=== PATIENT | female | born 1975 | race African-American/Black ===

== ENCOUNTER 2021-01-23 16:27 | Emergency (ER) | payer OTHER ==
[2021-01-23 16:53] VITALS: BP 126/84; PULSE 87; TEMP 98.2; BMI 36.8
[2021-01-23] MEDS ORDERED: MAG HYDROX/AL HYDROX/SIMETH 30 ML UNIT-DOSE CUP PO ONE (17:30)
[2021-01-23] MEDS ORDERED: LIDOCAINE VISCOUS 2% ORAL/TOP 20 ML UNIT-DOSE CUP MM ONE (17:30)
[2021-01-23] MEDS ORDERED: ALBUTEROL SO4 2.5/IPRATROPIUM 0.5 INH SOL 3 ML VIAL.NEB. NEB ONE ×2 (17:30→18:01)
[2021-01-23] MEDS ORDERED: LIDOCAINE VISCOUS 2% ORAL/TOP 20 ML UNIT-DOSE CUP ONE (18:01)
[2021-01-23] MEDS ORDERED: MAG HYDROX/AL HYDROX/SIMETH 30 ML UNIT-DOSE CUP ONE (18:01)
[2021-01-23 18:53] LABS: BASO % 1.1 % (0-2.0); EOS % 2.3 % (0-4.5); HEMATOCRIT 32.5 % (32.4-45.2); HEMOGLOBIN 10.7 GM/dL (10.7-15.3); LYMPH % 51.6 % (8-40); MCH 28.2 pg (25.7-33.7); MEAN CELL VOLUME 85.5 fl (80-96); MEAN PLT VOLUME 7.6 fl (7.5-11.1); MONO % 6.9 % (3.8-10.2); NEUT % 38.1 % (42.8-82.8); PLATELET COUNT 318 10^3/uL (134-434); RBC 3.81 M/mm3 (3.60-5.2); RDW 15.3 % (11.6-15.6); WHITE BLOOD COUNT 10.4 K/mm3 (4.0-10.0)
[2021-01-23 19:19] LABS: CHLORIDE 105 mmol/L (98-107); SODIUM 139 mmol/L (136-145)
[2021-01-23 19:21] LABS: CALCIUM 9.2 mg/dL (8.5-10.1)
[2021-01-23 19:22] LABS: ALBUMIN 3.8 g/dl (3.4-5.0); ANION GAP 8 MMOL/L (8-16); BLOOD UREA NITROGEN 15.7 mg/dL (7-18); CO2 26 mmol/L (21-32); GLUCOSE,RANDOM 98 mg/dL (74-106)
[2021-01-23 19:25] LABS: CREATININE 0.9 mg/dL (0.55-1.3); SGOT/AST 12 U/L (15-37); SGPT/ALT 16 U/L (13-61)
[2021-01-23 19:26] LABS: BILIRUBIN,TOTAL 0.6 mg/dL (0.2-1)
[2021-01-23 19:27] LABS: TOT PROT 7.4 g/dl (6.4-8.2)
[2021-01-23 19:28] LABS: ALK PHOS 69 U/L (45-117)
== END 2021-01-23 19:41 | disposition home or self-care (01) ==
LOC: JER 16:27
PROC: 3E0F7GC Introduction of Other Therapeutic Substance into Respiratory Tract, Via Natural or Artificial Opening (ICD-10-PCS; principal; 2021-01-23)
DX: R05 Cough (principal); R07.9 Chest pain, unspecified
CPT/HCPCS: 36415; 71045-TC-FY; 80053; 82550; 84484; 85025; 93005; 93010; 99285-25